=== PATIENT | male | born 1940 | race Two or more races ===

== ENCOUNTER 2017-07-03 14:05 | Outpatient (CLI) | payer OTHER ==
[~2017-07-03 14:05] MED LIST: AVAPRO300 MG PO; CALCIUM PO; HALCION0.25 MG PO; IMITREX100 MG PO; NORVASC10 MG PO; SYNTH PO; XANAX2 MG PO
== END 2017-07-03 14:16 | disposition home or self-care (01) ==
LOC: LAB 14:05
DX: E55.9 Vitamin D deficiency, unspecified (principal); M85.9 Disorder of bone density and structure, unspecified; E56.1 Deficiency of vitamin K; E83.42 Hypomagnesemia; E88.89 Other specified metabolic disorders

== ENCOUNTER 2018-10-05 13:43 | Outpatient (CLI) | payer OTHER | END 2018-10-05 13:51 | disposition home or self-care (01) | LOC: LAB 13:43 | DX: M81.8 Other osteoporosis without current pathological fracture (principal); E56.1 Deficiency of vitamin K; E21.2 Other hyperparathyroidism ==

== ENCOUNTER → 2020-01-18 | Outpatient (CLI) | payer OTHER | END | disposition home or self-care (01) | LOC: RAD 11:10 | PROVIDERS: ATTEND Orthopaedic Surgery | DX: M16.11 Unilateral primary osteoarthritis, right hip (principal); Z96.642 Presence of left artificial hip joint; Z76.89 Persons encountering health services in other specified circumstances; M25.551 Pain in right hip ==

== ENCOUNTER 2020-01-31 07:39 | Outpatient (CLI) | payer OTHER ==
[2020-01-31] MEDS ORDERED: LEVO-T112 MCG PO (12:03)
[2020-01-31] MEDS ORDERED: AMBIEN10 MG PO (12:04)
== END 2020-01-31 15:00 | disposition home or self-care (01) ==
LOC: LAB 07:39
PROVIDERS: ATTEND Orthopaedic Surgery
DX: D64.89 Other specified anemias (principal); E88.89 Other specified metabolic disorders; D68.8 Other specified coagulation defects; N39.0 Urinary tract infection, site not specified; Z22.322 Carrier or suspected carrier of Methicillin resistant Staphylococcus aureus

== ENCOUNTER 2020-02-02 17:18 | Outpatient (CLI) | payer OTHER ==
[~2020-02-02 17:18] MED LIST changes: +AMBIEN10 MG PO; +LEVO-T112 MCG PO
== END 2020-02-02 17:27 | disposition home or self-care (01) ==
LOC: RAD 17:18
PROVIDERS: ATTEND Orthopaedic Surgery
DX: M16.11 Unilateral primary osteoarthritis, right hip (principal); Z96.642 Presence of left artificial hip joint

== ENCOUNTER 2020-02-09 10:18 | Inpatient (IN) | payer OTHER ==
[~2020-02-09] VITALS: Ht 182.9 cm; Wt 81.6 kg
[2020-02-10] MEDS ORDERED: XANAX2 MG PO (10:26)
[2020-02-15] MEDS ORDERED: CALCIUM500 M1 PO (07:53)
== END 2020-02-17 14:35 | DRG 470 ==
LOC: O/R 02-15 05:55 → SURG 02-15 05:55 → SURH 02-15 07:00 → SURG 02-15 14:07
PROVIDERS: ADMIT Orthopaedic Surgery; ATTEND Orthopaedic Surgery
PROC: 0SR902Z Replacement of Right Hip Joint with Metal on Polyethylene Synthetic Substitute, Open Approach (ICD-10-PCS; principal; 2020-02-15 07:00)
DX: M16.11 Unilateral primary osteoarthritis, right hip (principal); D62 Acute posthemorrhagic anemia; I10 Essential (primary) hypertension; E03.9 Hypothyroidism, unspecified; M76.891 Other specified enthesopathies of right lower limb, excluding foot; Z96.642 Presence of left artificial hip joint

== ENCOUNTER 2020-05-18 16:12 | Emergency (ER) | payer OTHER ==
[~2020-05-18] VITALS: Ht 182.9 cm; Wt 77.1 kg
[~2020-05-18 16:12] MED LIST changes: +CALCIUM500 M1 PO
[2020-05-20] MEDS ORDERED: BACITRACIN28.4 G1 TOP (13:21)
== END 2020-05-18 19:21 | disposition home or self-care (01) ==
LOC: ER 16:12
DX: S73.004A Unspecified dislocation of right hip, initial encounter (principal); T84.020A Dislocation of internal right hip prosthesis, initial encounter; X50.9XXA Other and unspecified overexertion or strenuous movements or postures, initial encounter; Y93.01 Activity, walking, marching and hiking; Y92.098 Other place in other non-institutional residence as the place of occurrence of the external cause; Y99.8 Other external cause status; Z03.818 Encounter for observation for suspected exposure to other biological agents ruled out

== ENCOUNTER → 2020-05-20 | Emergency (ER) | payer OTHER ==
[~2020-05-20] VITALS: Ht 182.9 cm; Wt 81.6 kg
[~2020-05-20] MED LIST changes: +BACITRACIN28.4 G1 TOP
== END | disposition home or self-care (01) ==
LOC: ER 11:56
DX: S90.511A Abrasion, right ankle, initial encounter (principal); T88.8XXD Other specified complications of surgical and medical care, not elsewhere classified, subsequent encounter; X58.XXXD Exposure to other specified factors, subsequent encounter

== ENCOUNTER 2021-12-12 10:45 | Inpatient (IN) | payer OTHER ==
[~2021-12-12] VITALS: Ht 182.9 cm; Wt 88.0 kg
--- NOTE | 2021-12-12 11:02 | NUR ---
PACIENTE MASCULINO ALERTA Y ORIENTADO X3, REFIERE TENER MOLESTIA EN LA CADERA DERECHA Y VERBALIZA PACIENTE QUE SE LE SALIO DE SITIO.
--- NOTE | 2021-12-12 12:14 | NUR ---
PTE EVALUADO POR EL DR YUNGA QUIEN [place]. AL MOMENTO NO REQUIERE INTERVENCION DE ENFERMERIA.
[2021-12-13] MEDS ORDERED: ROSUVASTATIN CAL5 MG (10:46)
[2021-12-13] MEDS ORDERED: HYDROCHLOROTH12.5 MG (10:46)
[2021-12-13] MEDS ORDERED: AMLODIPINE BESYL5 MG (10:47)
[2021-12-13] MEDS ORDERED: IRBESARTAN300 MG (10:47)
[2021-12-13] MEDS ORDERED: ALPRAZOLAM2 MG (10:47)
[2021-12-13] MEDS ORDERED: ZOLPIDEM TARTRA10 MG (10:47)
[2021-12-13] MEDS ORDERED: SUMATRIPTAN SU100 MG (10:47)
[2021-12-13] MEDS ORDERED: LEVOTHYROXINE112 MCG (10:47)
== END 2021-12-17 23:01 | disposition home or self-care (01) | DRG 468 ==
LOC: ER 10:45 → SURH 12-13 06:39 → SEC-K 12-13 06:39 → SURH 12-13 16:25
PROVIDERS: Orthopaedic Surgery; ADMIT Internal Medicine; ATTEND Internal Medicine
PROC: 0SP90JZ Removal of Synthetic Substitute from Right Hip Joint, Open Approach (ICD-10-PCS; 2021-12-14)
PROC: 0SR90JZ Replacement of Right Hip Joint with Synthetic Substitute, Open Approach (ICD-10-PCS; principal; 2021-12-14 09:45)
DX: S73.004A Unspecified dislocation of right hip, initial encounter (principal); I10 Essential (primary) hypertension; E03.8 Other specified hypothyroidism; E78.5 Hyperlipidemia, unspecified

== ENCOUNTER 2025-02-28 09:42 | Emergency (ER) | payer OTHER ==
[~2025-02-28] VITALS: Ht 182.9 cm; Wt 95.3 kg
[~2025-02-28 09:42] MED LIST changes: +ALPRAZOLAM2 MG; +AMLODIPINE BESYL5 MG; +HYDROCHLOROTH12.5 MG; +IRBESARTAN300 MG; +LEVOTHYROXINE112 MCG; +ROSUVASTATIN CAL5 MG; +SUMATRIPTAN SU100 MG; +ZOLPIDEM TARTRA10 MG
[2025-02-28] MEDS ORDERED: KETOROLAC TROMETHAMINE 60 MG VIAL IM ONE (10:00)
[2025-02-28] MEDS ORDERED: NORFLEX100MG PO (10:59)
== END 2025-02-28 12:44 | disposition home or self-care (01) ==
LOC: ER 09:42
DX: M16.12 Unilateral primary osteoarthritis, left hip (principal); I10 Essential (primary) hypertension
CPT/HCPCS: 73502; 96372; 99283; J1885